=== PATIENT | female | born 1955 | race Caucasian/White ===

== ENCOUNTER 2020-03-31 10:39 | Emergency (ER) | payer OTHER, SELFPAY ==
[2020-03-31] MEDS: SODIUM CHLORIDE 0.9% 1,000 ML 1000 ML IV (10:35)
[2020-03-31 10:40] VITALS: BP 132/88; PULSE 95; RESP 24; O2SAT 96; BMI 21.2
--- NOTE | 2020-03-31 10:46 | ED.NAVMDI ---
HPI - Nausea/Vomiting/Diarrhea General Chief complaint: Nausea/Vomiting/Diarrhea Stated complaint: N/V/D since 0730 Time Seen by Provider: 03/31/20 10:41 Source: patient and EMS Mode of arrival: EMS Limitations: no limitations History of Present Illness HPI Narrative: Patient is a 65-year-old female with no known medical history presenting with 3 hours of nausea vomiting and diarrhea. She said she was doing well last evening, she was found on at a [employer] bathroom floor. She was on her way to work when she felt nauseous and dizzy she pulled over. She is hyperventilating complaining of cramping in her abdomen. She says she has had multiple episodes of vomiting and diarrhea this morning. She is complaining of cramping in her extremities as well. 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 MD complaint: nausea, vomiting and diarrhea Onset (ago): hour(s) (3) Description of Vomiting: watery Associated Abdominal Pain: Yes Location of pain: diffuse Quality: cramping Related Data Previous Rx's Medication Instructions Recorded ondansetron 4 mg PO Q8H #10 tab 03/31/20 Allergies Allergy/AdvReac Type Severity Reaction Status Date / Time No Known Drug Allergies Allergy Verified 03/31/20 10:45 Review of Systems Review of Systems Narrative: GENERAL: Denies chills, fatigue, malaise, fever, sweats, travel HEENT: Denies sinus pain, ear pain, sore throat, difficulty swallowing, neck pain RESPIRATORY: Denies dyspnea, cough, wheezing, hemoptysis, sputum. CARDIOVASCULAR: Denies chest pain, palpitations, orthopnea, edema GASTROINTESTINAL: See HPI : Denies dysuria, frequency, incontinence, hematuria, urinary retention, flank pain. MUSCULOSKELETAL: Denies weakness, joint pain, or bony pain SKIN: No rash, no erythema, no pruritus NEUROLOGIC: Denies weakness, dizziness, headache, numbness, change in speech, confusion PSYCHIATRIC: No concerning psychosocial issues. 12 point review of systems is negative except for those stated above and HPI Patient History Social History Smoking Status: Unknown if ever smoked Exam Initial Vital Signs Initial Vital Signs: Vital Signs Pulse Rate 95 H 03/31/20 10:40 Respiratory Rate 24 03/31/20 10:40 Blood Pressure 132/88 03/31/20 10:40 Pulse Oximetry 96 03/31/20 10:40 GENERAL: Alert female anxious hyperventilate and in no acute distress. HEENT: Head atraumatic,EOMI, pupils reactive, face symmetric, moist mucous membranes CARDIOVASCULAR: Regular rate and rhythm without murmurs, rubs or gallops. RESPIRATORY: Breath sounds equal bilaterally, no wheezes rales or rhonchi. ABDOMEN: Soft, diffuse pain no distension no guarding rebound or localization : No CVA tenderness EXTREMITIES: Normal range of motion, no clubbing or edema. Neurovascularly intact NEUROLOGICAL: Alert and oriented x4.Normal gait and speech. SKIN: Warm, dry, no laceration, no petechiae, no rashes or lesions. Course Orders Ordered: ED Orders 03/31/20 10:25 Complete Blood Count AUTO DIFF Stat Comprehensive Metabolic Panel Stat Lipase Stat Discontinued Medications Sodium Chloride (Normal Saline 0.9%) 1,000 mls @ 1,000 mls/hr IV BOLUS ONE Stop: 03/31/20 11:41 Last Infusion: 03/31/20 13:24 Dose: 0 mls/hr Documented by: Admin: 03/31/20 10:35 Dose: 1,000 mls/hr Documented by: SOCO Ketorolac Tromethamine (Toradol) 30 mg IV NOW ONE Stop: 03/31/20 10:43 Last Admin: 03/31/20 11:42 Dose: 30 mg Documented by: SOCO Pantoprazole Sodium (Protonix) 40 mg IV NOW ONE Stop: 03/31/20 10:43 Last Admin: 03/31/20 11:42 Dose: 40 mg Documented by: SOCO Vital Signs Vital signs: Vital Signs - 8 hr 03/31/20 12:12 Pulse Rate 76 Blood Pressure 130/60 Pulse Oximetry 97 MDM - Nausea/Vomiting/Diarrhea Lab Data Attestation: I reviewed the patient's lab results. Result diagrams: 03/31/20 10:25 03/31/20 10:25 Labs: Lab Results 03/31/20 03/31/20 Range/Units 10:25 10:25 WBC 15.9 H (4.5-11.0) X10^3/uL RBC 5.29 H (4.0-5.2) X10^6/uL Hgb 15.6 (12.0-16.0) g/dL Hct 47.0 H (36-46) % MCV 88.9 (80-100) fL MCH 29.4 (26-34) PG MCHC 33.1 (30-36) % RDW 13.2 (11.6-14.8) % Plt Count 211 (150-400) X10^3/uL Neut % (Auto) 91.9 H (50-75) % Lymph % (Auto) 2.6 L (25-40) % [place] % (Auto) 4.8 (3-14) % Eos % (Auto) 0.2 L (2-4) % Baso % (Auto) 0.5 (0-2) % Neut # (Auto) 10449 H (5677-1019) /uL Lymph # (Auto) 400 L (7828-0612) /uL [place] # (Auto) 800 (0-900) /uL Eos # (Auto) 0 (0-450) /uL Baso # (Auto) 100 (0-100) /uL Sodium 138 (137-145) mmol/L Potassium 3.1 L (3.4-5.1) mmol/L Chloride 99 (98-107) mmol/L Carbon Dioxide 20 L (22-32) mmol/L BUN 20 H (7-17) mg/dL Creatinine 0.94 (0.52-1.04) mg/dL Estimated GFR 59.6 L (>60) mL/min BUN/Creatinine Ratio 21.3 (6-22) Glucose 238 H (80-110) mg/dL Calcium 11.6 H (8.4-10.2) mg/dL Total Bilirubin 0.6 (0.2-1.3) mg/dL AST 37 H (14-36) IU/L ALT 27 (<35) IU/L Alkaline Phosphatase 79 (38-126) U/L Total Protein 10.1 H* (6.3-8.2) g/dL Albumin 5.8 H (3.5-5.0) g/dL Globulin 4.3 H (1.7-4.1) g/dL Albumin/Globulin Ratio 1.3 (1.0-2.8) Lipase 174 (23-300) U/L [facility] Narrative Medical decision making narrative: Patient is hyperventilating when she arrives. I have coached sure through slow regular breast which does seem to help. She initially refused Toradol and Zofran for her body aches and nausea but then later agreed to it. It did help her cramping. She has some leukocytosis but I do think this is more related to stress she has only had symptoms for 3 hours and is afebrile. Her potassium is noted to be slightly low at 3.1. She is tolerating oral fluids and overall feeling much better. Discharge Plan Departure Patient Disposition: Home Clinical Impression: Gastroenteritis Discharge Date/Time: 03/31/20 12:53 Instructions: DI for Viral Gastroenteritis -- Adult Activity Restrictions/Additional Instructions: 1) You have been diagnosed with gastroenteritis 2) What to do: Drink frequent but small amounts of fluids. I recommend Gatorade or a Gatorade-like product, as it has small amounts of sugar and salts that improve fluid retention. 3) Take medications as directed Zofran 4 mg every 8 hours if needed for nausea or vomiting 4) Follow up with your primary care provider in 2-3 days [and follow up with ortho, urology etc] 5) Return to ER if you should have any new or worsening symptoms such as, unable to hold down fluids despite use of anti-nausea medications and the small volume oral rehydration strategy. Prescriptions: New ondansetron 4 mg tablet,disintegrating 4 mg PO Q8H Qty: 10 RF: 0 Referrals: [facility] Resources [Outside]
[2020-03-31 10:56] LABS: Add Manual Diff / Slide Review NO; Basophils Absolute Auto 100 /uL (0-100); Basophils Percent Auto 0.5 % (0-2); Eosinophils Absolute Auto 0 /uL (0-450); Eosinophils Percent Auto 0.2 % (2-4); Hemoglobin 15.6 g/dL (12.0-16.0); Lymphocytes Absolute Auto 400 /uL (1100-4500); Lymphocytes Percent Auto 2.6 % (25-40); Mean Corpuscular HGB Conc 33.1 % (30-36); Mean Corpuscular Hemoglobin 29.4 PG (26-34); Mean Corpuscular Volume 88.9 fL (80-100); Monocytes Absolute Auto 800 /uL (0-900); Monocytes Percent Auto 4.8 % (3-14); Neutrophils Absolute Auto 14600 /uL (1500-7000); Neutrophils Percent Auto 91.9 % (50-75); Platelet Count 211 X10^3/uL (150-400); Red Blood Cell Count 5.29 X10^6/uL (4.0-5.2); Red Cell Distribution Width 13.2 % (11.6-14.8); White Blood Cell Count 15.9 X10^3/uL (4.5-11.0)
[2020-03-31 11:07] LABS: Alanine Aminotransferase 27 IU/L (<35); Albumin 5.8 g/dL (3.5-5.0); Alkaline Phosphatase 79 U/L (38-126); Aspartate Aminotransferase 37 IU/L (14-36); BUN Creatinine Ratio 21.3 (6-22); Bilirubin Total 0.6 mg/dL (0.2-1.3); Blood Urea Nitrogen 20 mg/dL (7-17); Calcium 11.6 mg/dL (8.4-10.2); Carbon Dioxide 20 mmol/L (22-32); Chloride 99 mmol/L (98-107); Estimated Glomerular Filt Rate 59.6 mL/min (>60); Glucose 238 mg/dL (80-110); Lipase 174 U/L (23-300); Potassium 3.1 mmol/L (3.4-5.1); Sodium 138 mmol/L (137-145)
[2020-03-31 11:17] LABS: Albumin Globulin Ratio 1.3 (1.0-2.8); Globulin 4.3 g/dL (1.7-4.1); HEMOLYSIS 27 (0-50)
[2020-03-31 11:18] LABS: Total Protein 10.1 g/dL (6.3-8.2)
[2020-03-31] MEDS: PANTOPRAZOLE 40 MG VIAL IV (11:42)
[2020-03-31] MEDS: KETOROLAC 60 MG/2 ML VIAL 30 MG IV (11:42)
[2020-03-31 12:12] VITALS: BP 130/60; PULSE 76; O2SAT 97
== END 2020-03-31 12:53 | disposition home or self-care (01) ==
PROVIDERS: Emergency Provider Emergency Medicine
DX: K52.9 Noninfective gastroenteritis and colitis, unspecified (principal); R10.9 Unspecified abdominal pain
CPT/HCPCS: 36415; 80053; 83690; 85025; 96361; 96374; 96375; 99284; C9113; J1885